=== PATIENT | male | born 1960 | race African-American/Black ===

== ENCOUNTER 2018-05-31 00:22 | Emergency (ER) | payer SELFPAY ==
[~2018-05-31] VITALS: Ht 188 cm; Wt 117.9 kg
[2018-05-31] MEDS ORDERED: METHYLPREDNISOLONE SOD SUCC 125 MG/2ML VIAL IV STA (00:48)
[2018-05-31] MEDS ORDERED: ALBUTEROL/IPRATROPIUM 3 ML NEB NEB STA ×2 (00:48→00:57)
--- NOTE | 2018-05-31 01:20 | Diagnostic Imaging Report ---
CXR 2 VIEW - HOPD, Technique: CXR 2 VIEW - HOPD Comparison: None Clinical history: Asthma DISCUSSION: Unremarkable appearance of the heart, mediastinum, lungs and pleural spaces. IMPRESSION: No acute abnormality Signed by: Dr Tami Rodriguez MD on 05/31/2018 1:16 AM
== END 2018-05-31 01:44 | disposition home or self-care (01) ==
LOC: FSED 00:22
DX: R06.00 Dyspnea, unspecified (principal); R05 Cough; J45.31 Mild persistent asthma with (acute) exacerbation; R73.9 Hyperglycemia, unspecified
CPT/HCPCS: 71046; 80053; 85025; 99283; J2930